=== PATIENT | female | born 1985 | race Caucasian/White ===

== ENCOUNTER 2023-07-08 11:54 | Emergency (ER) | payer OTHER, MEDICAID, SELFPAY ==
[2023-07-08 11:59] VITALS: BP 130/77; PULSE 75; RESP 16; TEMP 36.8; O2SAT 99; BMI 23.9
--- NOTE | 2023-07-08 12:17 | DI.RAD.S_ITS ---
PROCEDURE: XR HAND LT MIN 3V INDICATIONS: cat bite 2 weeks ago/ swelling/ finished antibiotics TECHNIQUE: 3 views of the hand(s) acquired. COMPARISON: None. FINDINGS: Bones: No fractures or dislocations. Carpal bones are normally aligned. No suspicious bony lesions. Soft tissues: No suspicious soft tissue calcifications. Soft tissue swelling on the dorsum of the hand. No soft tissue gas. IMPRESSION: No acute abnormality. No soft tissue gas. Dictated by: Timo Carroll M.D. on 07/08/2023 at 13:03 Approved by: Timo Carroll M.D. on 07/08/2023 at 13:06
--- NOTE | 2023-07-08 13:09 | ED.SKABFB ---
HPI - Skin/Abscess/Foreign Bdy <Stacie Mejia PA-C - Last Filed: 07/08/23 14:06> General Chief complaint: Skin/Abscess/Foreign Body Stated complaint: lt hand infection Time Seen by Provider: 07/08/23 12:41 Source: patient Mode of arrival: Ambulatory History of Present Illness HPI narrative: 38-year-old female presents to ED with a left hand infection. Patient to send a cat bite to her left 3rd knuckle 2 weeks ago and was seen at an urgent care in [place] 3 days later and given Augmentin for 10 days. States when the cat bite occurred she was making a full fist to hold back a dog and the cat bit her right over the knuckle. Patient states her range of motion and pain and swelling have improved over the course of the antibiotics but very slowly and she finished the antibiotics yesterday. There is still a area of swelling and tenderness and she is unable to make a fist still states range of motion has otherwise improved but when she tries to make a fist it feels tight and painful. She denies fevers or chills. She took full course of Augmentin as prescribed. Denies any spreading erythema of her hand or arm and any pain of the rest of her hand or other fingers. Related Data Home Medications Medication Instructions Recorded Confirmed multivitamin (Multiple Vitamins 1 tab PO QDAY #0 tabs 08/08/16 tablet) Previous Rx's Medication Instructions Recorded norethindrone acetate 1 mg-ethinyl 1 tab PO QDAY ##18 08/08/16 estradiol 20 mcg tablet (Microgestin) doxycycline hyclate 100 mg tablet 100 mg PO BID 10 days #20 tabs 07/08/23 Allergies Allergy/AdvReac Type Severity Reaction Status Date / Time No Known Drug Allergies Allergy Verified 07/08/23 13:00 Review of Systems <Stacie Mejia PA-C - Last Filed: 07/08/23 14:06> Review of Systems ROS Unobtainable: All systems reviewed & are unremarkable except as noted in HPI and below Patient History <Stacie Mejia PA-C - Last Filed: 07/08/23 14:06> Social History Smoking Status: Never smoker Smoking Status: Never smoker Substance Use Type: does not use Exam <Stacie Mejia PA-C - Last Filed: 07/08/23 14:06> Narrative Exam Narrative: GENERAL: [38] year old patient appears stated age. Well-developed patient, in mild distress. HEAD: Atraumatic. Normocephalic. EYES: Pupils equal round and reactive. Extraocular motions intact. No scleral icterus. No injection or drainage. ENT: Nose without bleeding, purulent drainage. Throat without erythema, tonsillar hypertrophy or exudate. Airway patent. NECK: Trachea midline. Non tender CARDIOVASCULAR: Regular rate and rhythm without murmurs, gallops, or rubs. RESPIRATORY: Respiratory rate and effort normal EXTREMITIES: Left hand with erythema, edema, fluctuance over the 3rd MCP joint. Mild tenderness. No erythematous streaking or erythema extending to other areas of the hand or fingers. Full range of motion of other fingers but unable to make full fists. Able to flex the 3rd digit somewhat but not fully. BACK: Nontender without deformity or crepitance. No flank tenderness. NEURO: AOx3. SKIN: No rash or erythema of visible areas Initial Vital Signs Initial Vital Signs: Vital Signs Temperature 98.3 F 07/08/23 11:59 Pulse Rate 75 07/08/23 11:59 Respiratory Rate 16 07/08/23 11:59 Blood Pressure 130/77 07/08/23 11:59 Pulse Oximetry 99 07/08/23 11:59 Oxygen Delivery Method Room Air 07/08/23 11:59 <Robel Sullivan DO - Last Filed: 07/08/23 15:03> Initial Vital Signs Initial Vital Signs: Vital Signs Temperature 98.3 F 07/08/23 11:59 Pulse Rate 75 07/08/23 11:59 Respiratory Rate 16 07/08/23 11:59 Blood Pressure 130/77 07/08/23 11:59 Pulse Oximetry 99 07/08/23 11:59 Oxygen Delivery Method Room Air 07/08/23 11:59 Course <Stacie Mejia PA-C - Last Filed: 07/08/23 14:06> Orders Ordered: ED Orders 07/08/23 12:17 XR hand LT min 3V Stat Consultations Consultation #1: consulted Dr. Sullivan who performed bedside ultrasound to look for any abscess that could be drained in ED today but there was no obvious fluid collection or abscess to be drained today. Vital Signs Vital signs: Vital Signs - 8 hr 07/08/23 11:59 07/08/23 13:45 Temperature 98.3 F Pulse Rate 75 74 Respiratory Rate 16 18 Blood Pressure 130/77 130/74 Pulse Oximetry 99 99 Oxygen Delivery Method Room Air Room Air <Robel Sullivan DO - Last Filed: 07/08/23 15:03> Orders Ordered: ED Orders 07/08/23 12:17 XR hand LT min 3V Stat Vital Signs Vital signs: Vital Signs - 8 hr 07/08/23 11:59 07/08/23 13:45 Temperature 98.3 F Pulse Rate 75 74 Respiratory Rate 16 18 Blood Pressure 130/77 130/74 Pulse Oximetry 99 99 Oxygen Delivery Method Room Air Room Air MDM - Skin/Abscess/Foreign Bdy <Stacie Mejia PA-C - Last Filed: 07/08/23 14:06> Imaging Data Extremity x-ray #1: My Impression: Launch?[place] [address] XRay Report Signed Patient: Chanel Moore MR#: [id number] : 1985 Acct:[id number] Age/Sex: 38 / F Date of Service: 07/08/23 Loc: ED Accession Number: [id number] ?? Procedure: XR hand LT min 3V Ordering Provider: Robel Sullivan D.O. PROCEDURE:? XR HAND LT MIN 3V ? INDICATIONS:? cat bite 2 weeks ago/ swelling/ finished antibiotics ? TECHNIQUE:? 3 views of the hand(s) acquired.? ? COMPARISON:? None. ? FINDINGS:? ? Bones:? No fractures or dislocations.? Carpal bones are normally aligned.? No suspicious bony lesions.? ? Soft tissues:? No suspicious soft tissue calcifications.? Soft tissue swelling on the dorsum of the hand.? No soft tissue gas. ? ? IMPRESSION:? No acute abnormality.? No soft tissue gas. ? ? Dictated by: Timo Carroll M.D. on 07/08/2023 at 13:03 ? ? Approved by: Timo Carroll M.D. on 07/08/2023 at 13:06 ? MDM Narrative Medical decision making narrative: 38-year-old female here today for left hand swelling following a cat bite that occurred 2 weeks ago. She was a fighting cat and dog and had her left hand in a fist holding the dog when the cat bit her right over the 3rd MCP joint. She did not seek care the same day but was seen at an urgent care 3 days later in [place] and given Augmentin x 10 days. patient states that the swelling, pain, limited range of motion in the area has improved somewhat since completing her antibiotics however she is still unable to make a full fist and she is still having swelling and tenderness to the area. her vitals are reassuring and on exam she has no evidence of a spreading or deep infection to the hand. There is a small area of palpable fluctuance however on bedside ultrasound there was no obvious fluid collection or abscess to be drained in ED today. There are no red flag findings or indications for immediate drainage by ortho so patient will be placed on doxycycline and will follow up outpatient with ortho. [] Multiple etiologies for patient's symptoms considered including, but not limited to: Cellulitis, abscess, joint infection Prior Charts reviewed: none Labs reviewed and interpreted by myself: none Imaging reviewed: none Consultations: Dr. Sullivan - bedside U/S - nothing to be drained today, pt will f/u with Ortho outpatient. Patient's symptoms improved over duration of stay with above-stated therapies. Findings and discharge diagnosis discussed with patient/family followed by verbalization of understanding Return precautions discussed with patient/family whom verbalize understanding of diagnosis and plan Discharge Plan Departure Patient Disposition: Home Clinical Impression: Cellulitis Qualifiers: Site of cellulitis: extremity Site of cellulitis of extremity: upper extremity Laterality: left Qualified Code(s): L03.114 - Cellulitis of left upper limb Cat bite of hand Qualifiers: Encounter type: subsequent encounter Laterality: left Qualified Code(s): S61.452D - Open bite of left hand, subsequent encounter Instructions: DI for Cellulitis -- Adult Activity Restrictions/Additional Instructions: you were seen in the ED today for an infection of your left hand. This is a complication resulting from the cat bite you received 2 weeks ago. We did a bedside ultrasound today which revealed no obvious fluid collection that could be drained. Therefore we recommend that you take another antibiotic called doxycycline for 10 days and follow up with Orthopedics within the next week. No deeper or spreading infection today. If increased erythema that spreads up your hand or arm, increased swelling and fluctuance of the area, fever chills, or decreased motion of the affected finger please return to the ED. you will be on antibiotics please use a backup form of contraception for the duration of her antibiotic course. Prescriptions: New doxycycline hyclate 100 mg tablet 100 mg PO BID 10 Days Qty: 20 0RF No Action multivitamin [Multiple Vitamins] 1 EACH tablet 1 tab PO QDAY Qty: 0 norethindrone ac-eth estradiol [Microgestin 11/09 (21)] 1 MG/20 MCG tablet 1 tab PO QDAY Qty: 18 0RF Referrals: Jose Elias Patel MD [Physician] - As soon as possible (Cat bite directly on L 3rd MCP joint 2 weeks ago, finished Augmentin x 10 days but still swollen with limited ROM of 3rd digit. no identifiable abscess on bedside U/S in ED, XRay unremarkable. Pt given Doxy x 10 days in Ed. ) Leonila Willis MD [Physician] - Stand Alone Forms: Patient Portal/API <Robel Sullivan DO - Last Filed: 07/08/23 15:03> Cosign ED Attending Cosignature Attestation: I did evaluate this patient with the APC. I did do a bedside ultrasound over the area in question on the dorsum of her left hand over the MCP joint of the middle finger. There may have been a very small pocket of fluid in this area but I felt that an incision and drainage would cause more harm than good. There was no overlying skin redness. She did have some limited range of motion because of the swelling. She had no tenderness along the flexor tendon. Plan will be is to change her antibiotics and have her follow up with Orthopedic surgery.
[2023-07-08 13:45] VITALS: BP 130/74; PULSE 74; RESP 18; O2SAT 99
== END 2023-07-08 14:16 | disposition home or self-care (01) ==
PROVIDERS: Emergency Provider Physician Assistant; Family Provider Nurse Practitioner
DX: L03.114 Cellulitis of left upper limb (principal); W55.01XA Bitten by cat, initial encounter
CPT/HCPCS: 73130; 99283